=== PATIENT | male | born 1950 | race Caucasian/White ===

== ENCOUNTER 2018-07-12 08:10 | Outpatient (CLI) | payer BC ==
--- NOTE | 2018-07-12 08:36 | RAD ---
PA AND LATERAL CHEST: History: Pre-operative evaluation. FINDINGS: The heart size is normal. The lungs are well expanded without focal areas of consolidation, pneumotho races or pleural effusions. There are degenerative changes of the spine. IMPRESSION: No radiographic evidence of acute cardiopulmonary process. POS: [facility]
== END 2018-07-12 08:11 | disposition home or self-care (01) ==
LOC: BICRAD 08:10
PROVIDERS: ATTEND Family Medicine
DX: Z01.818 Encounter for other preprocedural examination (principal)
CPT/HCPCS: 71046; 80053; 85025

== ENCOUNTER 2019-02-02 07:05 | Outpatient (CLI) | payer BC ==
--- NOTE | 2019-02-02 09:20 | RAD ---
RADIOGRAPH CERVICAL SPINE 3 VIEWS: DATE: 02/02/19 HISTORY: 68-year-old male with cervical spinal stenosis and nontraumatic cervicalgia. COMPARISON: None. FINDINGS: Anterior metallic plate and screws at C3 and C4. Tiny metallic markers for interbody cage at the C3-4 disc space, which is not narrowed. Partial ankylosis across C2-3 disc space. C4-5: Mild disc space narrowing with mild osteophytosis. C5-6: Moderate to severe disc space narrowing with prominent osteophytosis, including encroachment u joann anterior aspect of spinal canal. C6-7: Somewhat severe disc space narrowing with end plate irregularity and osteophytosis encroaching upon the anterior aspect of the spinal canal. Grade I anterolisthesis of C6 on C7 due to high grade facet DJD. Multilevel moderate and severe facet DJD bilaterally. Minimal anterolisthesis of C3 on C4. No prevert ebral soft tissue swelling. Vertebral body heights are maintained. Asymmetrical moderate joint space narrowing at left atlantoaxial joint. IMPRESSION: 1. Severe cervical spondylosis with multilevel high grade facet osteoarthrosis and multilevel high g rade degenerative disc disease. 2. Status post anterior cervical diskectomy and fusion at C3-4. JN [] POS: [facility]
--- NOTE | 2019-02-02 09:53 | MRI ---
MRI CERVICAL SPINE NONCONTRAST: DATE: 02/02/2019. HISTORY: A 68-year-old male with cervical spinal stenosis and cervicalgia. COMPARISON: None. FINDINGS: Moderate facet osteoarthrosis on the right at C4-5. Severe facet DJD at all other levels bilaterally . The left C2-3 facet joint is ankylosed. C1-2: No central stenosis. C2-3: Mild to moderate central stenosis. Mild bilateral neural foraminal stenosis. C3-4: Minimal anterolisthesis of C3 on C4. Moderately large broad-based disk-osteophytic bar comple x protrudes into the anterior aspect of the spinal canal, indents the spinal cord, flattening it, and effaces CSF signal. Ligamentum flavum thickening indents the dorsal aspect of the spinal cord. The re is intramedullary T2 hyperintense signal at this level. Bilateral small to moderate sized uncinat e process osteophytes. Right-sided moderate neural foraminal stenosis. Severe left neural foraminal stenosis. Very severe spinal canal stenosis. There are anterior metallic plate and screws. C4-5: Disk space maintained. Mild broad-based disk-osteophytic bar complex protrudes into the anter ior aspect of the spinal canal asymmetrically greater on the right side than left. Moderate central spinal canal stenosis. Moderate to severe right neural foraminal stenosis. Severe left neural jomar inal stenosis. C5-6: Mild to moderate disk space narrowing. End plate irregularity. Broad-based disk-osteophytic bar complex protrudes into the anterior aspect of the spinal canal causing severe central spinal martha l stenosis. Moderate right uncinate process osteophytes. Moderate to severe right neural foraminal stenosis. Very severe left neural foraminal stenosis due to large left uncinate process osteophytes and facet hypertrophy. C6-7: Severe disk space narrowing with end plate irregularity. Grade 1 anterolisthesis of C6 on C7 due to the severe bilateral facet DJD. Very severe bilateral neural foraminal stenosis. Ligamentum flavum thickening. Moderate to severe central spinal canal stenosis. C7-T1: No high-grade disk space narrowing. No significant central stenosis. Mild to moderate bilat eral neural foraminal stenosis. IMPRESSION: 1. Severe cervical spondylosis with multilevel high-grade degenerative disk disease, especially in t he lower levels, and severe facet osteoarthrosis at almost all levels bilaterally. 2. Very severe central spinal canal stenosis causing severe chronic cord compression with cord signa l abnormality (either myelomalacia or cord edema) at C3-4. 3. Multilevel severe neural foraminal stenosis, and other levels of high grade central spinal canal stenosis, including severe. 4. Status post anterior cervical diskectomy and fusion at C3-4. CODE T POS: [facility]
== END 2019-02-02 07:06 | disposition home or self-care (01) ==
LOC: SCSMRI 07:05
PROVIDERS: ATTEND Neurological Surgery
DX: M48.02 Spinal stenosis, cervical region (principal); M47.812 Spondylosis without myelopathy or radiculopathy, cervical region; M50.30 Other cervical disc degeneration, unspecified cervical region; Z98.1 Arthrodesis status; Z98.890 Other specified postprocedural states
CPT/HCPCS: 72040; 72141